=== PATIENT | female | born 1985 | race African-American/Black ===

== ENCOUNTER → 2021-11-20 | Outpatient (CLI) | payer OTHER | LOC: MHCPAIN 09:39 → EDSEX 09:39 | DX: M47.816 Spondylosis without myelopathy or radiculopathy, lumbar region (principal); M54.50 Low back pain, unspecified; M53.3 Sacrococcygeal disorders, not elsewhere classified | CPT/HCPCS: G0463 ==

== ENCOUNTER → 2021-12-05 | Outpatient (CLI) | payer OTHER | LOC: MHCPAIN 08:05 | DX: M47.817 Spondylosis without myelopathy or radiculopathy, lumbosacral region (principal); M54.50 Low back pain, unspecified; M53.3 Sacrococcygeal disorders, not elsewhere classified ==

== ENCOUNTER 2022-01-22 05:25 | Day surgery (SDC) | payer OTHER ==
[~2022-01-22] VITALS: Ht 182.9 cm; Wt 131.7 kg
[2022-01-22] MEDS ORDERED: PAMELOR 25MG25 MG PO (06:02)
[2022-01-22] MEDS ORDERED: CELEBREX 200MG200 MG PO (06:02)
[2022-01-22] MEDS ORDERED: LIDODERM 5% PATC1 EA TP (06:03)
[2022-01-22 06:25] VITALS: BP 122/61; PULSE 63; TEMP 97.6
[2022-01-22] MEDS ORDERED: NORCO 325 MG-51 TAB PO (08:10)
[2022-01-22 09:00] VITALS: BP 117/73; PULSE 55; TEMP 97.4
--- NOTE | 2022-01-22 09:00 | NUR ---
PT TO BAY 7 PER CART FROM PACU. REPORT RECEIVED. VS OBTAINED. PT TOLERATING WATER WITHOUT DIFFICULTY. CALL LIGHT WITHIN REACH. PT DENIES ANY NEEDS AT THIS TIME.
[2022-01-22 09:15] VITALS: BP 123/80; PULSE 63
--- NOTE | 2022-01-22 09:15 | NUR ---
PT TOLERATING WATER. DENIES ANY NEEDS AT THIS TIME.
[2022-01-22 09:30] VITALS: BP 122/77; PULSE 55
[2022-01-22 09:45] VITALS: BP 119/70; PULSE 60
[2022-01-22 10:00] VITALS: BP 118/73; PULSE 58
--- NOTE | 2022-01-22 10:00 | NUR ---
PT CONTINUES TO DENY ANY NEEDS AT THIS TIME.
--- NOTE | 2022-01-22 10:10 | NUR ---
PT TOLERATING JUICE AND MUFFINS. WILL CONTINUE TO MONITOR.
--- NOTE | 2022-01-22 10:30 | NUR ---
IV DC'D. TOLERATED WELL.
--- NOTE | 2022-01-22 11:10 | NUR ---
EDUCATION COMPLETED WITH PT. PT VERBALIZED UNDERSTANDING OF HOME AND FOLLOW UP CARE. ALL QUESTIONS ANSWERED. PAPERWORK GIVEN TO PT.
--- NOTE | 2022-01-22 11:20 | NUR ---
PT OFF UNIT PER WHEELCHAIR. PT DISCHARGED TO HOME WITH FRIEND PER PERSONAL VEHICLE.
== END 2022-01-22 11:20 | disposition home or self-care (01) ==
LOC: SDCO 05:25
DX: K80.10 Calculus of gallbladder with chronic cholecystitis without obstruction (principal); K80.43 Calculus of bile duct with acute cholecystitis with obstruction
CPT/HCPCS: J0690; J1100; J1885; J2405; J2550; J2704; J3010; J7120

== ENCOUNTER → 2022-02-12 | Outpatient (CLI) | payer OTHER ==
[~2022-02-12] MED LIST: CELEBREX 200MG200 MG PO; LIDODERM 5% PATC1 EA TP; NORCO 325 MG-51 TAB PO; PAMELOR 25MG25 MG PO
== END ==
LOC: MHCPAIN 09:56
DX: M47.896 Other spondylosis, lumbar region (principal); M54.16 Radiculopathy, lumbar region; M53.3 Sacrococcygeal disorders, not elsewhere classified
CPT/HCPCS: G0463

== ENCOUNTER → 2022-06-02 | Outpatient (CLI) | payer OTHER | LOC: MHCPAIN 03-20 09:35 | DX: M47.816 Spondylosis without myelopathy or radiculopathy, lumbar region (principal); M54.16 Radiculopathy, lumbar region; M53.3 Sacrococcygeal disorders, not elsewhere classified | CPT/HCPCS: G0463; J1100; Q9967 ==